=== PATIENT | male | born 1945 | race Caucasian/White ===

== ENCOUNTER 2018-05-05 15:31 | Emergency (ER) | payer MEDICARE ==
[2018-05-05] MEDS ORDERED: Sulfamethox/Trimethoprim DS 800/160* TAB PO ONE (18:45)
[2018-05-05] MEDS ORDERED: Tetan/Diph/Pertus SYR(Tdap)* 0.5 ML SYR(BOOSTRIX) use SYR IM ONE (18:45)
--- NOTE | 2018-05-05 18:49 | ED ---
Laceration/Wound HPI - HPI Summary HPI Summary: Patient complains of mechanical fall today grossly door into product display a grocery store with subsequent laceration to right ear and skin tears on right hand. Denies trauma to head, LOC, REICH, N/V, vision change, EMS. Denies pain anywhere, denies any other injuries. No anti-coag. Medical history is HTN. - History of Current Complaint Stated Complaint: RT EAR LAC Time Seen by Provider: 05/05/18 17:46 Hx Obtained From: Patient Mechanism of Injury: Sharp/Blunt Trauma Aggravating: Nothing Alleviating: Nothing Onset Severity: Mild Current Severity: None Pain Intensity: 0 Pain Scale Used: 0-10 Numeric Associated Signs & Symptoms: Negative - Allergy/Home Medications Allergies/Adverse Reactions: Allergies Allergy/AdvReac Type Severity Reaction Status Date / Time No Known Allergies Allergy Verified 05/05/18 15:39 PMH/Surg Hx/FS Hx/Imm Hx Endocrine/Hematology History: Denies: Hx Anticoagulant Therapy History: Denies: Hx Dialysis Neurological History: Reports: Hx CVA - Immunization History Date of Tetanus Vaccine: UNK Infectious Disease History: No Infectious Disease History: Denies: History Other Infectious Disease, Traveled Outside the [place] in Last 30 Days - Social History Alcohol Use: Rare Substance Use Type: Reports: None Smoking Status (MU): Never Smoked Tobacco Review of Systems Constitutional: Negative Eyes: Negative ENT: Negative Cardiovascular: Negative Respiratory: Negative Gastrointestinal: Negative Genitourinary: Negative Musculoskeletal: Negative Skin: Other Neurological: Negative Psychological: Normal All Other Systems Reviewed And Are Negative: Yes Physical Exam - Summary Physical Exam Summary: Laceration to lower her right ear. No involvement of cartilage. No change in hearing. No other site indication of trauma to head, face or mouth noted. Skin tears on third and fourth digits of right hand. No indication for suturing or wound care. Triage Information Reviewed: Yes Vital Signs On Initial Exam: Initial Vitals Temp Pulse Resp BP Pulse Ox 98.1 F 84 16 188/80 96 05/05/18 15:35 05/05/18 15:35 05/05/18 15:35 05/05/18 15:35 05/05/18 15:35 Vital Signs Reviewed: Yes Appearance: Positive: Well-Appearing Skin: Positive: Warm Head/Face: Positive: Normal Head/Face Inspection Eyes: Positive: Normal ENT: Positive: Normal ENT inspection Neck: Positive: Supple Respiratory/Lung Sounds: Positive: Clear to Auscultation Cardiovascular: Positive: Normal Abdomen Description: Positive: Nontender Musculoskeletal: Positive: Normal Neurological: Positive: Normal Psychiatric: Positive: Normal AVPU Assessment: Alert - Augustin Coma Scale Best Eye Response: 4 - Spontaneous Best Motor Response: 6 - Obeys Commands Best Verbal Response: 5 - Oriented Coma Scale Total: 15 Procedures - Laceration/Wound Repair 1 Location: head Description: Linear Anesthesia: Local, 1.0% Length, Depth and Shape: 2cm x 1cm Betadine Prep?: Yes Irrigated w/ Saline (ccs): 30 Laceration/Wound Explored: clean Debridement: minimal Number of Sutures: 6 - 6.0 ethilon Layer Closure?: No Diagnostics - Vital Signs Vital Signs Temp Pulse Resp BP Pulse Ox 05/05/18 15:35 98.1 F 84 16 188/80 96 - Laboratory Lab Statement: Any lab studies that have been ordered have been reviewed, and results considered in the medical decision making process. Laceration Repair Course/Dx - Course Course Of Treatment: Patient complains of mechanical fall today grossly door into product display a grocery store with subsequent laceration to right ear and skin tears on right hand. Denies trauma to head, LOC, REICH, N/V, vision change, EMS. Denies pain anywhere, denies any other injuries. No anti-coag. Medical history is HTN. Physical exam:Laceration to lower her right ear. No involvement of cartilage. No change in hearing. No other site indication of trauma to head, face or mouth noted. Skin tears on third and fourth digits of right hand. No indication for suturing or wound care. Wound sutured. Patient started on Bactrim. Rx for same - Clinical Impression Provider Diagnoses: Laceration Discharge - Sign-Out/Discharge Documenting (check all that apply): Patient Departure - Discharge Plan Condition: Stable Disposition: HOME Prescriptions: Sulfamethox/Trimethoprim DS* [Bactrim DS 800/160 TAB*] 1 tab PO BID 5 Days #10 tab Patient Education Materials: Care For Your Stitches (ED), Laceration (ED), Facial Laceration (ED) Referrals: No Primary Care Phys,NOPCP [Primary Care Provider] - Additional Instructions: Sutures out in 5 days. Take antibiotics as directed. May wash with warm running water and soap. Do not submerge as in swimming. Return to the ED for any new or worsening symptoms - Billing Disposition and Condition Condition: STABLE Disposition: Home
[2018-05-05 19:24] VITALS: BP 173/79
== END 2018-05-05 19:25 | disposition home or self-care (01) ==
LOC: ED 15:31
DX: S01.311A Laceration without foreign body of right ear, initial encounter (principal); S61.411A Laceration without foreign body of right hand, initial encounter; W19.XXXA Unspecified fall, initial encounter; Y92.512 Supermarket, store or market as the place of occurrence of the external cause; I10 Essential (primary) hypertension; Z23 Encounter for immunization
CPT/HCPCS: 12011; 90471; 90715; 99282; A9270-GY

== ENCOUNTER → 2018-05-11 06:35 | Emergency (ER) | payer MEDICARE ==
[2018-05-11 06:39] VITALS: BP 165/88
--- NOTE | 2018-05-11 06:56 | ED ---
Skin Complaint - HPI Summary HPI Summary: Pt. is a 73 y.o male who presents to the ER for suture removal to right ear. Pt. was seen in ER 6 days ago after sustaining laceration to left ear after a fall. Pt. has no complaints today. Denies wound redness, swelling, drainage or pain. Symptoms are mild in severity. No current modifying factors. - History of Current Complaint Chief Complaint: EDLacSutureRecheck Time Seen by Provider: 05/11/18 06:41 Stated Complaint: GENERAL Hx Obtained From: Patient Pain Intensity: 0 - Allergy/Home Medications Allergies/Adverse Reactions: Allergies Allergy/AdvReac Type Severity Reaction Status Date / Time No Known Allergies Allergy Verified 05/11/18 06:39 PMH/Surg Hx/FS Hx/Imm Hx Previously Healthy: Yes Endocrine/Hematology History: Denies: Hx Anticoagulant Therapy History: Denies: Hx Dialysis Neurological History: Reports: Hx CVA - Immunization History Date of Tetanus Vaccine: UNK Infectious Disease History: No Infectious Disease History: Denies: History Other Infectious Disease, Traveled Outside the in Last 30 Days - Family History Known Family History: Positive: Other - Noncontributory - Social History Occupation: Works From/At Home Lives: With Family Alcohol Use: Rare Substance Use Type: Reports: None Smoking Status (MU): Never Smoked Tobacco Review of Systems Positive: Other - Sutures to right ear lobe All Other Systems Reviewed And Are Negative: Yes Physical Exam Triage Information Reviewed: Yes Vital Signs On Initial Exam: Initial Vitals Temp Pulse Resp BP Pulse Ox 97.9 F 86 16 165/88 96 05/11/18 06:37 05/11/18 06:37 05/11/18 06:37 05/11/18 06:37 05/11/18 06:37 Vital Signs Reviewed: Yes Appearance: Positive: Well-Appearing - Pt. sitting on bed in NAD. Pleasant. Skin: Positive: Warm, Dry, Other - Healing sutured wound to right ear lobe. No erythema, drainage or edema. Head/Face: Positive: Normal Head/Face Inspection Eyes: Positive: Normal, EOMI Neurological: Positive: Normal, CN Intact II-III Psychiatric: Positive: Affect/Mood Appropriate Procedures - Procedure Summary Procedure Summary: 6 sutures removed from right ear lobe. Wound is well approximated without signs of infection. Pt. tolerated well. Diagnostics - Vital Signs Vital Signs Temp Pulse Resp BP Pulse Ox 05/11/18 06:37 97.9 F 86 16 165/88 96 - Laboratory Lab Statement: Any lab studies that have been ordered have been reviewed, and results considered in the medical decision making process. Course/Dx - Course Course Of Treatment: Pt. presenting for suture removal. Sutures removed, no signs of infection. Advised to continue wound care. To f.u with PCP if needed. - Differential Diagnoses - Skin Complaint Differential Diagnoses: Cellulitis - Diagnoses Provider Diagnoses: Visit for suture removal Discharge - Sign-Out/Discharge Documenting (check all that apply): Patient Departure - Discharge Plan Condition: Good Disposition: HOME Patient Education Materials: Stitches Removal (ED) Referrals: Stacie Prater [Primary Care Provider] - Additional Instructions: Keep wound clean and dry Follow up with PCP if needed - Billing Disposition and Condition Condition: GOOD Disposition: Home
== END | disposition home or self-care (01) ==
LOC: ED 06:35
DX: Z48.02 Encounter for removal of sutures (principal)
CPT/HCPCS: 99281